=== PATIENT | female | born 1970 | race Caucasian/White ===

== ENCOUNTER → 2019-10-24 14:45 | Outpatient (CLI) | payer OTHER, SELFPAY ==
--- NOTE | 2019-10-24 | DI.CT.S_ITS ---
PROCEDURE: CT ABDOMEN PELVIS W CON INDICATIONS: acute right low quadrant pain, nausea, low back pain TECHNIQUE: After the administration of intravenous contrast, 5 mm thick sections acquired from the diaphragm to the symphysis. 5 mm coronal and sagittal reformats were acquired. For radiation dose reduction, the following was used: automated exposure control, adjustment of mA and/or kV according to patient size. COMPARISON: None. FINDINGS: Image quality: Excellent. ABDOMEN: Lung bases: Lung bases are clear. Heart size is normal. Solid organs: Liver is normal in size and enhancement. Gallbladder is normal. Biliary system is non dilated. Pancreas enhances normally. Spleen is normal in size and enhancement. No adrenal nodules. Kidneys demonstrate normal size and enhancement, without hydronephrosis. Peritoneum and bowel: Bowel loops demonstrate normal wall thickness and caliber. Appendix is not identified. No secondary signs for acute appendicitis. No free fluid or air. Nodes and vessels: No retroperitoneal or mesenteric adenopathy by size criteria. Aorta and inferior vena cava are normal in size. Miscellaneous: No ventral hernias. PELVIS: Genitourinary: Bladder wall thickness is normal. Uterus is myomatous. There is a 2 cm fibroid in the right posterior lateral uterine wall. Smaller fibroids are seen. There are nabothian cysts in cervix. There are in the ovaries, most likely ovarian follicles. There is a trace amount of free fluid in the cul-de-sac. Miscellaneous: No inguinal hernias or adenopathy. Bones: No suspicious bony lesions. No vertebral body compression fractures. IMPRESSION: 1. No definitive CT findings to explain acute right lower quadrant pain. Appendix is not definitively identified. There is no secondary signs for acute appendicitis. 2. Myomatous uterus. 3. Small ovarian cysts, most likely physiological follicles. 4. A trace amount of free fluid in the cul-de-sac, which is likely within the physiological limits. Dictated by: Eva Hunt M.D. on 10/24/2019 at 16:06 Approved by: Eva Hunt M.D. on 10/24/2019 at 16:24
== END ==
PROVIDERS: Visit Provider Student in an Organized Health Care Education/Training Program
DX: R10.31 Right lower quadrant pain (principal); R11.0 Nausea; M54.5 Low back pain; N88.8 Other specified noninflammatory disorders of cervix uteri
CPT/HCPCS: 74177; Q9967

== ENCOUNTER → 2022-09-20 07:41 | Outpatient (CLI) | payer OTHER, SELFPAY ==
[2022-09-20 10:51] LABS: Add Manual Diff / Slide Review NO; Basophils Absolute Auto 0 /uL (0-100); Basophils Percent Auto 1.1 % (0-2); Eosinophils Absolute Auto 100 /uL (0-450); Eosinophils Percent Auto 3.2 % (2-4); Hematocrit 42.1 % (36-46); Hemoglobin 14.3 g/dL (12.0-16.0); Lymphocytes Absolute Auto 1000 /uL (1100-4500); Lymphocytes Percent Auto 22.7 % (25-40); Mean Corpuscular HGB Conc 33.9 % (30-36); Mean Corpuscular Hemoglobin 30.4 PG (26-34); Mean Corpuscular Volume 89.6 fL (80-100); Monocytes Absolute Auto 500 /uL (0-900); Monocytes Percent Auto 11.8 % (3-14); Neutrophils Absolute Auto 2800 /uL (1500-7000); Neutrophils Percent Auto 61.2 % (50-75); Platelet Count 333 X10^3/uL (150-400); White Blood Cell Count 4.6 X10^3/uL (4.5-11.0)
[2022-09-20 10:57] LABS: Hemoglobin A1C% w Est Avg Glu 5.3 % (4.0-6.0)
[2022-09-20 11:18] LABS: HEMOLYSIS < 15 (0-50); Iron 133 ug/dL (37-170)
[2022-09-20 11:29] LABS: Alanine Aminotransferase 36 IU/L (<35); Albumin Globulin Ratio 1.3 (1.0-2.8); Alkaline Phosphatase 108 U/L (38-126); Aspartate Aminotransferase 24 IU/L (14-36); BUN Creatinine Ratio 27.3 (6-22); Bilirubin Total 0.6 mg/dL (0.2-1.3); Blood Urea Nitrogen 18 mg/dL (7-17); Calcium 8.8 mg/dL (8.4-10.2); Carbon Dioxide 29 mmol/L (22-32); Chloride 101 mmol/L (98-107); Cholesterol 210 mg/dL (140-199); Estimated Glomerular Filt Rate > 60 mL/min (>60); Glucose 90 mg/dL (70-100); HDL Cholesterol 61 mg/dL (40-60); HEMOLYSIS < 15 (0-50); LDL Cholesterol Calculated 123 mg/dL (<100); Percent Iron Saturation 42 % (15-50); Potassium 4.2 mmol/L (3.4-5.1); Sodium 137 mmol/L (137-145); Total Iron Binding Capacity 314 ug/dL (265-497); Transferrin 251 mg/dL (206-381); Triglycerides 131 mg/dL (35-150)
[2022-09-20 11:47] LABS: TSH w/ Reflex to FT4 1.08 uIU/mL (0.47-4.68)
[2022-09-20 11:53] LABS: Ferritin 89 ng/mL (11-264)
== END ==
PROVIDERS: PCP Student in an Organized Health Care Education/Training Program; Referring Provider Student in an Organized Health Care Education/Training Program; Visit Provider Student in an Organized Health Care Education/Training Program
DX: Z00.00 Encounter for general adult medical examination without abnormal findings (principal); Z86.2 Personal history of diseases of the blood and blood-forming organs and certain disorders involving the immune mechanism; Z83.438 Family history of other disorder of lipoprotein metabolism and other lipidemia; Z82.49 Family history of ischemic heart disease and other diseases of the circulatory system; Z13.220 Encounter for screening for lipoid disorders; D50.9 Iron deficiency anemia, unspecified; Z13.1 Encounter for screening for diabetes mellitus
CPT/HCPCS: 36415; 80053; 80061; 82728; 83036; 83540; 83550; 84443; 85025

== ENCOUNTER 2025-06-10 13:07 | Emergency (ER) | payer OTHER, SELFPAY ==
[2025-06-10] VITALS (13 sets, daily range): BP systolic 111–167; BP diastolic 66–77; PULSE 58–69; RESP 18; TEMP 36.9; O2SAT 97–99; BMI 23.9
--- NOTE | 2025-06-10 13:17 | EKG_ITS ---
[facility] [address] [address] Test Date: 2025-06-10 Pat Name: Betsy Avelar Department: [facility] Room: Gender: Female [employer]: : [id number] Requested By: Order Number: [id number] Reading MD: Xander Dominguez Measurements Intervals [place] Rate: 59 P: 59 CT: 154 QRS: 32 QRSD: 94 T: 39 QT: 428 QTc: 423 Interpretive Statements Sinus bradycardia Electronically Signed On 06-11-2025 15:04:49 PDT by Xander Dominguez
--- NOTE | 2025-06-10 16:54 | ED_ITS ---
HPI - Dizziness General Chief Complaint: Dizziness Stated Complaint: Feels Disoriented , light headedness Time Seen by Provider: 06/10/25 16:00 Source: patient Mode of arrival: Ambulatory History of Present Illness HPI Narrative: 54-year-old female patient, otherwise healthy, who has had mild URI symptoms earlier this week including congestion, cough and decreased energy with no documented fever. Dose of resolved but she is wondering if she was not getting enough fluids because today she has had intermittent feelings of lightheadedness and low energy. No chest pain, palpitations or fever. Related Data Allergies Allergy/AdvReac Type Severity Reaction Status Date / Time No Known Drug Allergies Allergy Verified 06/10/25 13:11 Review of Systems Review of Systems Narrative: GENERAL: Denies chills, fatigue, malaise, fever, sweats. HEENT: Denies sinus pain, ear pain, sore throat, difficulty swallowing, dizziness. RESPIRATORY: Denies dyspnea, cough, wheezing, hemoptysis, sputum. CARDIOVASCULAR: See HPI. Denies chest pain, palpitations, edema, GASTROINTESTINAL: Denies nausea, vomiting, abdominal pain, diarrhea, constipation, melena. : Denies dysuria, frequency, incontinence, hematuria, urinary retention. MUSCULOSKELETAL: denies weakness, joint pain, or bony pain SKIN: Denies rash, skin lesions, or other NEUROLOGIC: Denies weakness, headache, numbness, change in speech, confusion, seizures, incoordination. PSYCHIATRIC: No concerning psychosocial issues. 12 point review of systems is negative except for those stated above Patient History Social History Smoking Status: Current every day smoker Smoking Status: Current every day smoker tobacco type: vaping Exam Narrative Exam Narrative: GENERAL: 54 year old patient appears stated age. Well-developed patient, in mild distress. HEAD: Atraumatic. Normocephalic. EYES: Pupils equal round and reactive. Extraocular motions intact. No scleral icterus. No injection or drainage. ENT: Nose without bleeding, purulent drainage. Throat without erythema, tonsillar hypertrophy or exudate. Airway patent. NECK: Trachea midline. Non tender CARDIOVASCULAR: Regular rate and rhythm without murmurs, gallops, or rubs. RESPIRATORY: Clear to auscultation. Breath sounds equal bilaterally. No wheezes, rales, or rhonchi. GASTROINTESTINAL: Abdomen soft, non-tender, nondistended. EXTREMITIES: No edema or joint tenderness. BACK: Nontender without deformity or crepitance. No flank tenderness. NEURO: AOx3. SKIN: No rash or erythema of visible areas Initial Vital Signs Initial Vital Signs: Vital Signs Temperature 98.5 F 06/10/25 13:10 Pulse Rate 66 06/10/25 13:10 Respiratory Rate 18 06/10/25 13:10 Blood Pressure 165/71 H 06/10/25 13:10 Pulse Oximetry 99 06/10/25 13:10 Oxygen Delivery Method Room Air 06/10/25 13:10 Course Orders Ordered: ED Orders 06/10/25 13:17 EKG-12 Lead Stat 06/10/25 14:46 CBC Auto Diff [Complete Blood Count AUTO DIFF] Stat CMP [Comprehensive Metabolic Panel] Stat 06/10/25 15:45 Urinalysis and Microscopic Stat Discontinued Medications Lactated Ringer's (Lactated Ringers) 1,000 mls @ 1,000 mls/hr IV BOLUS ONE Stop: 06/10/25 17:52 Last Admin: 06/10/25 17:27 Dose: 1,000 mls/hr Documented By: MELVIN Vital Signs Vital signs: Vital Signs - 8 hr 06/10/25 13:10 06/10/25 14:33 06/10/25 14:34 Temperature 98.5 F Pulse Rate 66 59 L Respiratory Rate 18 Blood Pressure 165/71 H 133/72 Pulse Oximetry 99 99 Oxygen Delivery Method Room Air 06/10/25 14:46 06/10/25 14:46 06/10/25 15:00 Temperature Pulse Rate 58 L 64 Respiratory Rate Blood Pressure 143/77 H Pulse Oximetry 99 97 Oxygen Delivery Method 06/10/25 15:01 06/10/25 15:01 06/10/25 15:30 Temperature Pulse Rate 59 L 64 Respiratory Rate Blood Pressure 111/67 Pulse Oximetry 98 99 Oxygen Delivery Method 06/10/25 15:31 06/10/25 15:31 06/10/25 16:00 Temperature Pulse Rate 63 Respiratory Rate Blood Pressure 127/77 129/66 Pulse Oximetry 99 Oxygen Delivery Method 06/10/25 16:00 06/10/25 16:30 06/10/25 16:31 Temperature Pulse Rate 64 69 63 Respiratory Rate Blood Pressure Pulse Oximetry 98 99 99 Oxygen Delivery Method 06/10/25 16:31 Temperature Pulse Rate Respiratory Rate Blood Pressure 137/69 Pulse Oximetry Oxygen Delivery Method MDM - Dizziness Differential Diagnosis Condition is:: Improved Lab Data Attestation: I reviewed the patient's lab results. Lab results narrative: CBC, urinalysis and CMP unremarkable 06/10/25 14:46 06/10/25 14:46 Labs: Lab Results 06/10/25 06/10/25 Range/Units 14:46 15:45 WBC 4.3 L (4.5-11.0) X10^3/uL RBC 4.68 (4.0-5.2) X10^6/uL Hgb 14.1 (12.0-16.0) g/dL Hct 41.3 (36-46) % MCV 88.3 (80-100) fL MCH 30.1 (26-34) PG MCHC 34.1 (30-36) % RDW 12.1 (11.6-14.8) % Plt Count 169 (150-400) X10^3/uL Neut % (Auto) 68.4 (50-75) % Lymph % (Auto) 22.8 L (25-40) % [place] % (Auto) 8.5 (3-14) % Eos % (Auto) 0.1 L (2-4) % Baso % (Auto) 0.2 (0-2) % Neut # (Auto) 2900 (5493-5195) /uL Lymph # (Auto) 1000 L (6668-0198) /uL [place] # (Auto) 400 (0-900) /uL Eos # (Auto) 0 (0-450) /uL Baso # (Auto) 0 (0-100) /uL Sodium 141 (137-145) mmol/L Potassium 4.0 (3.4-5.1) mmol/L Chloride 108 H (98-107) mmol/L Carbon Dioxide 24 (22-32) mmol/L BUN 10 (7-17) mg/dL Creatinine 0.58 (0.52-1.04) mg/dL Estimated GFR > 60 (>60) mL/min BUN/Creatinine Ratio 17.2 (6-22) Glucose 99 (70-99) mg/dL Calcium 8.9 (8.4-10.2) mg/dL Total Bilirubin 0.6 (0.2-1.3) mg/dL AST 47 H (14-36) IU/L ALT 63 H (<35) IU/L Alkaline Phosphatase 126 (38-126) U/L Total Protein 7.7 (6.3-8.2) g/dL Albumin 4.6 (3.5-5.0) g/dL Globulin 3.1 (1.7-4.1) g/dL Albumin/Globulin Ratio 1.5 (1.0-2.8) Urine Color Yellow Urine Appearance Clear Urine pH 5.5 (4.5-8.0) Ur Specific [place] <=1.005 (1.000-1.035) Urine Protein Negative (Negative) Urine Glucose (UA) Negative (Negative) g/dL Urine Ketones Negative (NEGATIVE) Urine Occult Blood Trace-intact (Negative) Urine Nitrate Negative (Negative) Urine Bilirubin Negative (NEGATIVE) Urine Urobilinogen 0.2 (0.2) E.U./dL Ur Leukocyte Esterase Negative (NEGATIVE) Urine RBC 0-1/hpf (0-5/HPF) Urine WBC 0-1/hpf (0-5/HPF) Ur Squamous Epith Cells 0-1 /hpf (0-5/HPF) Urine Bacteria Few (2-10) H (None) Ur Culture Indicated? Cult not indicated Vol Urine Centrifuged 10ml (spun) Urine Dip Bedside Urine Glucose Negative Bedside Urine Bilirubin - Negative Bedside Urine Ketone - Negative Urine Specific [place] 1.005 Bedside Urine Occult Blood - Negative Bedside Urine pH 7.0 Bedside Urine Protein - Negative Bedside Urine Urobilinogen - Negative Bedside Urine Nitrite - Negative Bedside Urine Leukocytes - Negative Esterase ECG Data Attestation: I personally reviewed and interpreted this ECG as follows: (Underlying sinus bradycardia. Rate 59. [place] and intervals normal. No ischemic changes ) MDM Narrative Medical decision making narrative: Patient with intermittent mild lightheadedness which is possibly related to volume depletion from previous illness this week but currently not having further URI symptoms are need for further workup. Has improved with hydration. Lab work reassuring. Patient will be discharged home with a plan to hydrate and rest and follow up with primary care if symptoms persist. Return to the ER if worse Discharge Plan Departure Patient Disposition: Home Clinical Impression: Light-headedness Instructions: DI for Dizziness-Nonvertigo Activity Restrictions/Additional Instructions: Assessment: Dizziness/lightheadedness possibly from dehydration. Plan: Rest and hydration. Contact your doctor in follow-up if not improving. May need further workup Referrals: Kary Hernandez DO [Primary Care Provider, Internal Medicine] Stand Alone Forms: Patient Portal/API
[2025-06-10 16:57] LABS: Add Manual Diff / Slide Review NO; Hematocrit 41.3 % (36-46); Hemoglobin 14.1 g/dL (12.0-16.0); Lymphocytes Absolute Auto 1000 /uL (1100-4500); Mean Corpuscular HGB Conc 34.1 % (30-36); Mean Corpuscular Hemoglobin 30.1 PG (26-34); Mean Corpuscular Volume 88.3 fL (80-100); Platelet Count 169 X10^3/uL (150-400)
[2025-06-10 17:09] LABS: Appearance Urine UA CLEAR; Bilirubin Urine UA NEGATIVE (NEGATIVE); Color Urine UA YELLOW; Glucose Urine UA NEGATIVE (Negative); Ketones Urine UA NEGATIVE (NEGATIVE); Leukocyte Esterase Urine UA NEGATIVE (NEGATIVE); Nitrite Urine UA NEGATIVE (Negative); Occult Blood Urine UA TRACE-INTACT (Negative); Protein Urine UA NEGATIVE (Negative); Specific Gravity Urine UA <=1.005 (1.000-1.035); Urobilinogen Urine UA 0.2 E.U./dL (0.2)
[2025-06-10] MEDS: LACTATED RINGERS 1,000 ML 1000 ML IV (17:27)
[2025-06-10 17:32] LABS: Alanine Aminotransferase 63 IU/L (<35); Albumin 4.6 g/dL (3.5-5.0); Albumin Globulin Ratio 1.5 (1.0-2.8); Alkaline Phosphatase 126 U/L (38-126); Blood Urea Nitrogen 10 mg/dL (7-17); Calcium 8.9 mg/dL (8.4-10.2); Carbon Dioxide 24 mmol/L (22-32); Chloride 108 mmol/L (98-107); Estimated Glomerular Filt Rate > 60 mL/min (>60); Globulin 3.1 g/dL (1.7-4.1); Glucose 99 mg/dL (70-99); HEMOLYSIS 24 (0-50); Potassium 4.0 mmol/L (3.4-5.1); Sodium 141 mmol/L (137-145); Total Protein 7.7 g/dL (6.3-8.2)
[2025-06-10 17:34] LABS: pH Urine UA 5.5 (4.5-8.0)
[2025-06-10 17:36] LABS: Culture Indicated Urine Cult Not Indicated
== END 2025-06-10 18:48 | disposition home or self-care (01) ==
PROVIDERS: Emergency Provider Emergency Medicine; PCP Student in an Organized Health Care Education/Training Program
DX: R42 Dizziness and giddiness (principal); R05.9 Cough, unspecified
CPT/HCPCS: 80053; 81001; 81003; 85025; 93005; 96360; 99283; 99284